=== PATIENT | female | born 1995 | race Caucasian/White ===

== ENCOUNTER → 2017-11-08 15:32 | Outpatient (CLI) | payer MEDICAID, SELFPAY ==
--- NOTE | 2017-11-08 15:56 | XR_ITS ---
XR KUB Ordering Physician: Era Arenas Patient Age: 22 years: Female HISTORY: ITS.REASON: ABD PAIN,NAUSEA . Moderate stool and gas throughout the right and transverse colon. Minimal stool and gas at the left colon and rectosigmoid. Minimal small bowel gas. No bowel dilatation or obstruction. TECHNIQUE: AP supine upright abdomen. COMPARISON : None relevant FINDINGS Nonspecific bowel gas pattern. Mild no bowel dilatation or obstruction. No organomegaly. No significant calcifications. IMPRESSION: No acute findings A unremarkable bowel gas pattern. Right and transverse colon with moderate stool and gas throughout. Normal pattern
[2017-11-08 16:01] LABS: Basophils % 0.4 % (0.1-2.0); Eosinophils # 0.2 K/mm3 (0.0-0.4); Eosinophils % 2.4 % (0.1-12.0); Hematocrit 40.4 % (37.0-47.0); Hemoglobin 13.3 g/dL (12.2-16.2); Lymphocytes # 1.7 K/mm3 (0.7-4.5); Lymphocytes % 19.2 K/mm3 (10-50); Mean Corpuscular HGB Conc 33.1 g/dL (31.8-35.4); Mean Corpuscular Hemoglobin 28.9 pg (27.0-31.2); Mean Corpuscular Volume 87.3 fl (81-99); Mean Platelet Volume 8.4 fl (7.4-10.4); Monocytes # 0.3 K/mm3 (0.1-1.0); Monocytes % 3.2 % (1.7-9.3); Neutrophils # 6.6 K/mm3 (1.8-7.8); Neutrophils % 74.9 % (37.0-80.0); Platelet Count 182 K/mm3 (142-424); Red Blood Count 4.62 M/mm3 (4.20-5.40); Red Cell Distribution Width 12.3 % (11.5-17.5); White Blood Count 8.8 K/mm3 (4.8-10.8)
[2017-11-08 16:49] LABS: Alanine Aminotransferase 16 U/L (12-78); Albumin Level 3.6 gm/dL (3.4-5.0); Albumin/Globulin Ratio 1.2 (1.1-1.8); Alkaline Phosphatase 104 U/L (46-116); Amylase 32 U/L (25-125); Anion Gap 12.5 mEq/L (5-15); Aspartate Amino Transferase 8 U/L (15-37); Bilirubin,Total 0.1 mg/dL (0.2-1.0); Blood Urea Nitrogen 7 mg/dL (7-18); Calcium 8.4 mg/dL (8.5-10.1); Carbon Dioxide 26 mmol/L (21.0-32.0); Chloride 109 mmol/L (98-107); Creatinine,Serum 0.69 mg/dL (0.55-1.02); Estimated Glomerular Filt Rate 106 ml/min (>60); GFR (African American) 129 ML/MIN (>60); Globulin 2.9 gm/dl (1.3-3.2); Glucose 93 mg/dL (74-106); Lipase 67 u/L (73-393); Potassium 3.5 mmoL/L (3.5-5.1); Sodium 144 mmol/L (136-145); Total Protein,Serum 6.5 gm/dL (6.4-8.2)
[2017-11-10 08:25] LABS: Hep A Ab, IgM Negative (Negative); Hepatitis B Core Antibody IgM Negative (Negative); Hepatitis B Surface Antigen Negative (Negative)
[2017-11-10 14:53] LABS: Hepatitis C Antibody 0.1 s/co ratio (0.0-0.9)
== END ==
PROVIDERS: Visit Provider Nurse Practitioner Family
DX: R10.9 Unspecified abdominal pain (principal); R11.0 Nausea
CPT/HCPCS: 36415; 74018; 80053; 80074; 82150; 83690; 85025; 86677

== ENCOUNTER → 2018-03-20 11:22 | Outpatient (CLI) | payer MEDICAID, SELFPAY ==
[2018-03-20 11:51] LABS: Basophils % 0.3 % (0.1-2.0); Eosinophils # 0.1 K/mm3 (0.0-0.4); Eosinophils % 0.7 % (0.1-12.0); Hematocrit 39.6 % (37.0-47.0); Hemoglobin 13.3 g/dL (12.2-16.2); Lymphocytes # 1.4 K/mm3 (0.7-4.5); Mean Corpuscular HGB Conc 33.6 g/dL (31.8-35.4); Mean Corpuscular Hemoglobin 29.1 pg (27.0-31.2); Mean Corpuscular Volume 86.8 fl (81-99); Mean Platelet Volume 7.8 fl (7.4-10.4); Monocytes # 0.5 K/mm3 (0.1-1.0); Neutrophils # 6.2 K/mm3 (1.8-7.8); Platelet Count 223 K/mm3 (142-424); Red Blood Count 4.56 M/mm3 (4.20-5.40); Red Cell Distribution Width 12.9 % (11.5-17.5); White Blood Count 8.2 K/mm3 (4.8-10.8)
[2018-03-20 13:19] LABS: Free Thyroxine Index 3.7 ug/dL (5.93-13.13); T4 (Thyroxine) 11.6 ug/dl (4.7-13.3); Thyroid Stimulating Hormone 0.43 uIU/ml (0.358-3.740); Triiodothryronine (T3) Uptake 32 % (31-39)
[2018-03-21 09:21] LABS: HIV Screen 4th Generation wRfx Non Reactive (Non Reactive)
[2018-03-21 14:21] LABS: Hepatitis B Surface Antigen Negative (Negative); Hepatitis C Antibody <0.1 s/co ratio (0.0-0.9); Rapid Plasma Reagin Ab Titer Non Reactive (NonRea<1:1); Rubella Antibodies, IgG <0.90 index (Immune >0.99)
== END ==
PROVIDERS: Visit Provider Nurse Practitioner Obstetrics & Gynecology
DX: Z34.90 Encounter for supervision of normal pregnancy, unspecified, unspecified trimester (principal)
CPT/HCPCS: 36415; 84436; 84443; 84479; 85025; 86592; 86703; 86762; 86850; 87340; 87380; G0432

== ENCOUNTER → 2018-03-29 08:52 | Outpatient (CLI) | payer MEDICAID, SELFPAY ==
--- NOTE | 2018-03-29 08:54 | US_ITS ---
US OB transvaginal HISTORY: ITS.REASON: US OB Dates ORDERING PHYSICIAN: Celso Sanchez MD PATIENT AGE: 22 years COMPARISON: None FINDINGS: An intrauterine gestational sac is present with a pole with a crown-rump length of 3.62cm correlating to gestational age of 10w4d. heart tones are present with an FHR of 170 bpm's. Yolk sac is noted. . Adnexa: Unremarkable. IMPRESSION: Live intrauterine gestation at 10 weeks 4 days as described above. Estimated due date by Ultrasound is 10/21/2018
== END ==
PROVIDERS: PCP Physician Assistant; Visit Provider Nurse Practitioner Obstetrics & Gynecology
DX: O26.841 Uterine size-date discrepancy, first trimester (principal)
CPT/HCPCS: 76817

== ENCOUNTER → 2018-05-22 12:30 | Outpatient (CLI) | payer MEDICAID, SELFPAY ==
[2018-05-24 06:14] LABS: Buprenorphine, Urine Negative ng/mL (Cutoff=10)
== END ==
PROVIDERS: Visit Provider Nurse Practitioner Obstetrics & Gynecology
DX: Z34.90 Encounter for supervision of normal pregnancy, unspecified, unspecified trimester (principal)
CPT/HCPCS: 80307

== ENCOUNTER → 2018-06-05 12:36 | Outpatient (CLI) | payer MEDICAID, SELFPAY ==
--- NOTE | 2018-06-05 13:00 | US_ITS ---
US OB /maternal detail: INDICATION: anatomy exam ITS.REASON: US OB Complete ORDERING PHYSICIAN: Celso Sanchez MD PATIENT AGE: 22 years TECHNIQUE: ultrasound transabdominal scanning. COMPARISON: No previous relevant studies. FINDINGS: Single viable intrauterine gestation. Cephalic position. Placenta: Posterior placenta grade 1. There is average amount fluid. The cervix appears satisfactory. Closed and measuring 3 cm in length. Complete survey performed and was unremarkable on the submitted images as in PACS. No discrete anomalies identified on survey imaging by technologist. Active fetus. Three-vessel cord with satisfactory umbilical cord insertion. 4- chamber heart noted. Survey of brain & ventricles unremarkable. Face and neck survey unremarkable. Diaphragm and chest views unremarkable. Abdomen: Both kidneys noted and unremarkable. Stomach noted and satisfactory. Spine: Survey of the spine satisfactory with no anomalies identified nor imaged. Both arms and legs noted. Amniotic Fluid: Adequate. Maternal adnexa: No significant findings. Measurements: Average ultrasound age 20w2d. Gestational Age 20w2d. Estimated due date by ultrasound age 0710/21/2018. Estimated weight 344 grams. BPD = 20w2d OFD = 21w2d HC = 20w0d AC = 20w2d FL = 20w4d Growth Percentile= 45% Heart Rate = 146 Cerebellum = 19w3d Humerus = 20w2d HC/AC is 1.17 (1.09-1.26). CI is 74% (70-86%). FL/BPD is 71%. FL/AC is 22%. IMPRESSION: There is a single live intrauterine gestation which is in cephalic presentation. Average ultrasound age is 20 weeks and 2 days. No obvious anomalies. Please see above for details
== END ==
PROVIDERS: PCP Physician Assistant; Visit Provider Nurse Practitioner Obstetrics & Gynecology
DX: Z36.0 Encounter for antenatal screening for chromosomal anomalies (principal)
CPT/HCPCS: 76811

== ENCOUNTER → 2019-12-06 11:10 | Outpatient (CLI) | payer MEDICAID, SELFPAY ==
[2019-12-06 12:57] LABS: Coronavirus 19 IgG Antibody Negative (Negative); Coronavirus 19 IgM Antibody Negative (Negative)
[2019-12-07 15:53] LABS: Covid-19 Nasal PCR Sendout Lex Not Detected
== END ==
PROVIDERS: Visit Provider Family Medicine
DX: Z03.818 Encounter for observation for suspected exposure to other biological agents ruled out (principal); R05 Cough; R06.02 Shortness of breath
CPT/HCPCS: 36415; 86328; U0004

== ENCOUNTER → 2021-11-15 18:18 | Outpatient (CLI) | payer MEDICAID, SELFPAY | LOC: LAB 18:19 → LAB.DROPOF 11-16 10:43 | PROVIDERS: PCP Family Medicine; Visit Provider Family Medicine | DX: Z20.822 Contact with and (suspected) exposure to COVID-19 (principal); J02.9 Acute pharyngitis, unspecified | CPT/HCPCS: 87070; C9803; U0003; U0005 ==

== ENCOUNTER 2023-05-16 09:04 | Emergency (ER) | payer MEDICAID, SELFPAY ==
[2023-05-16] VITALS (8 sets, daily range): BP systolic 129–150; BP diastolic 77–101; PULSE 57–89; RESP 18; TEMP 36.7; O2SAT 98–100; BMI 27.4
--- NOTE | 2023-05-16 09:11 | HMH.EDGENADL ---
Discharge Plan Disposition Patient Disposition: Home, Self-Care Condition: Good Prescriptions Prescriptions: No Action amoxicillin 500 mg capsule 500 mg PO TID Qty: 30 0RF Referrals Follow up/Referrals: Robel Vila MD [Primary Care Provider] - See instructions Clinical Impressions Clinical Impression: Hyperemesis gravidarum Instructions Patient Instructions: DI for Hyperemesis Gravidarum Discharge ED Provider: Makayla Sky General Adult HPI General Chief complaint: Nausea/Vomiting/Diarrhea Stated complaint: vomiting Time Seen by Provider: 05/16/23 09:06 History of Present Illness HPI narrative: Patient has a PMHx significant for gastritis who presents to the ED with complaints of intractable nausea vomiting. Patient notes that for the past 8 days, she has been having constant nausea vomiting, triggered by a history of p.o. intake including water. Patient notes that she is having multiple episodes of emesis daily. Patient notes that over the past 3 to 4 days, she has started noticing blood-tinged emesis. Patient denies any abdominal pain or diarrhea. Patient went to an outside hospital approximately 1 week ago and found out that she is . Patient denies any fevers or chills. Patient came into the ED due to ongoing symptoms. Related Data Previous Rx's Medication Instructions Recorded amoxicillin 500 mg capsule 500 mg PO TID #30 caps 11/15/21 Allergies Allergy/AdvReac Type Severity Reaction Status Date / Time No Known Allergies Allergy Verified 11/15/21 14:06 [facility] Disclaimer: The information contained in this section may have been updated after the patient was seen, as this information can be updated by other users. Social History Smoking Status: Former smoker alcohol intake: never substance use type: marijuana (stoppe 09/2021) current occupational status: employed ([employer]) Travel in the last 8 weeks: None household members: children housing: apartment ROS Obtained: Yes All systems reviewed & no additional complaints except as documented Physical Exam General General appearance: alert and in no apparent distress Head Head exam: atraumatic, normocephalic and normal inspection Eye Eye exam: Present normal appearance, PERRL and EOMI; Absent scleral icterus or nystagmus ENT ENT exam: Present normal exam, mucous membranes moist and normal external ear exam Neck Neck exam: Present normal inspection, full ROM and trachea midline Chest Chest inspection: Present normal inspection and symmetric chest wall rise; Absent tenderness Respiratory Respiratory exam: Present normal lung sounds bilaterally; Absent respiratory distress, wheezes or accessory muscle use Cardiovascular Cardiovascular exam: Present regular rate, normal rhythm and normal heart sounds Abdominal Exam Abdominal exam: Present soft; Absent distention, tenderness, guarding, rebound, rigidity, trauma, ascites or pulsatile mass Extremities Exam Extremities exam: Present normal inspection and full ROM; Absent tenderness Back Exam Back exam: Present normal inspection and full ROM; Absent tenderness Neurological Exam Neurological exam: Present alert, oriented X3 and normal gait; Absent motor sensory deficit Psychiatric Psychiatric exam: Present normal affect and normal mood Skin Skin exam: Present warm, dry and pallor Medical Decision Making Medical Records Medical records reviewed: Yes I reviewed the patient's medical records. Kar Inquiry Pt receiving controlled substance: No Vital Signs: 05/16/23 09:05 05/16/23 09:08 05/16/23 10:02 Temperature 98.1 F Temperature Source Oral Pulse Rate 72 57 L Pulse Rate [Left Radial] 73 Respiratory Rate 18 Blood Pressure 131/86 138/82 Blood Pressure [Right Arm] 131/86 Blood Pressure Mean [Right Arm] 101 Blood Pressure Source [Right Arm] Automatic Cuff Blood Pressure Position [Right Arm] Sitting 02 Sat by Pulse Oximetry 100 100 98 Oxygen Delivery Method Room Air Room Air Room Air 05/16/23 10:30 05/16/23 11:00 Temperature Temperature Source Pulse Rate 61 60 Pulse Rate [Left Radial] Respiratory Rate Blood Pressure 129/77 131/77 Blood Pressure [Right Arm] Blood Pressure Mean [Right Arm] Blood Pressure Source [Right Arm] Blood Pressure Position [Right Arm] 02 Sat by Pulse Oximetry 100 100 Oxygen Delivery Method Room Air Room Air Lab Data Lab results reviewed: Yes I reviewed the patient's lab results. Lab Results 05/16/23 09:16: WBC 14.5 H, RBC 4.95, Hgb 15.8, Hct 41.6, MCV 84.0, MCH 31.8 H, MCHC 37.9 H, RDW 12.9, Plt Count 215, MPV 9.0, Neut % (Auto) 83.5 H, Lymph % (Auto) 10.2, [place] % (Auto) 4.6, Eos % (Auto) 1.5, Baso % (Auto) 0.3, Neut # (Auto) 12.1 H, Lymph # (Auto) 1.5, [place] # (Auto) 0.7, Eos # (Auto) 0.2, Baso # (Auto) 0.0, Sodium 134 L, Potassium 3.3 L, Chloride 99, Carbon Dioxide 20 L, Anion Gap 18.3 H, BUN 9, Creatinine 0.50 L, Estimated Creat Clear 206, Estimated GFR 148, Est GFR ( Amer) 179, Glucose 96, Calcium 9.4, Total Bilirubin 1.1, AST 29, ALT 30, Alkaline Phosphatase 113, Total Protein 8.1, Albumin 4.7, Globulin 3.4 H, Albumin/Globulin Ratio 1.4, Lipase 30, HCG, Quant 90034 H 05/16/23 10:02: Urine Color Dark yellow, Urine Appearance Sl cloudy, Urine pH 6.0, Ur Specific [place] >= 1.030, Urine Protein 1+, Urine Glucose (UA) Negative, Urine Ketones 3+, Urine Blood Negative, Urine Nitrate Negative, Urine Bilirubin Negative, Urine Urobilinogen 1.0, Ur Leukocyte Esterase Negative, Urine RBC Occasional, Urine WBC Occasional, Ur Squamous Epith Cells 10-20, Urine Bacteria Trace, Urine Mucus 2+ 05/16/23 11:22: Lactate 1.1 05/16/23 09:16 05/16/23 09:16 Orders (Tests/Meds): ED MEDICATIONS Discontinued Medications Generic Name Dose Route Start Last Admin Trade Name Christina PRN Reason Stop Dose Admin Acetaminophen 1,000 mg 05/16/23 09:10 05/16/23 09:26 Acetaminophen 500mg Tab PO 05/16/23 09:11 1,000 mg ONCE ONE Administration Belladonna Alkaloids 60 ml 05/16/23 09:10 05/16/23 09:26 Belladonna Alkaloids 60 Ml Ml PO 05/16/23 09:11 60 ml ONCE ONE Administration Diphenhydramine HCl 25 mg 05/16/23 09:42 05/16/23 09:52 Diphenhydramine 50mg/Ml Vial IV 05/16/23 09:43 25 mg ONCE ONE Administration Droperidol 2.5 mg 05/16/23 09:42 05/16/23 09:52 Droperidol 5mg/2ml Vial IV 05/16/23 09:43 2.5 mg ONCE ONE Administration Lactated Ringer's 1,000 mls @ 999 mls/hr 05/16/23 09:10 05/16/23 09:25 Lactated Ringer's 1000 Ml Bag IV 05/16/23 10:10 999 mls/hr .Q1H1M ONE Administration Ondansetron HCl 4 mg 05/16/23 09:10 05/16/23 09:26 Ondansetron 4mg/2ml Vial IV 05/16/23 09:11 4 mg ONCE ONE Administration ORDERS Category Date Time Status Beta HCG, Quant [HCG,Quantitative] Stat Lab 05/16/23 09:16 Completed CBC w/Auto Diff [Complete Blood Count Auto Diff] Stat Lab 05/16/23 09:16 Completed CMP [Comprehensive Metabolic Panel] Stat Lab 05/16/23 09:16 Completed Lactic Acid Stat Lab 05/16/23 11:22 Completed Lipase Stat Lab 05/16/23 09:16 Completed Urinalysis and Microscopic Stat Lab 05/16/23 10:02 Completed Urine Culture Stat Micro 05/16/23 10:02 Received Medical Decision Narrative: In summary, Patient has a PMHx significant for gastritis who presents to the ED with complaints of intractable nausea vomiting. Patient notes that for the past 8 days, she has been having constant nausea vomiting, triggered by a history of p.o. intake including water. Patient notes that she is having multiple episodes of emesis daily. Patient notes that over the past 3 to 4 days, she has started noticing blood-tinged emesis. Patient denies any abdominal pain or diarrhea. Patient went to an outside hospital approximately 1 week ago and found out that she is . Patient denies any fevers or chills. Patient came into the ED due to ongoing symptoms. Patient was afebrile, hemodynamically stable, in no respiratory distress, and nontoxic in appearance upon arrival and throughout the entire stay in the ED. Physical examination was unremarkable aside from signs of dehydration including mucosal pallor and delayed cap refill, including lungs CTAB, normal cardiac auscultation, benign abdominal exam with no focal TTP, and no acute neurological deficit. The DDx includes, but is not limited to, dehydration secondary to acute viral gastroenteritis, bacterial gastroenteritis, hyperemesis gravidarum c/b acute metabolic or hematological derangement, gastritis. All of these have been considered, however ruling out the most morbid conditions drove my clinical assessment and thus the following laboratory and/or radiographic evaluation was conducted to the appropriate extent based on history and physical examination. All ordered laboratory studies independently reviewed and interpreted by myself and pertinent for: - CBC was unremarkable for any actionable leukocytosis, anemia, or thrombocytopenia. Mild WBC of 14.5 - CMP was unremarkable for any actionable electrolyte derangement, elevated creatinine, or transaminitis. - Lipase WNL - U/A was unremarkable for any signs consistent with an urinary tract infection or noteworthy hematuria, ketonuria, or glucosuria. - Lactate WNL - HCG [id number] Interventions/Medications Received in the ED: -1L LR, 4mg IV zofran, 1000mg APAP, GI cocktail, 2.5mg droperidol, 25mg benadryl Reassessment: On re-evaluation of patient, patient endorsed significant improvement of symptoms. patient able to tolerate Po intake At this time, given unremarkable workup and/or symptomatic relief, as well as the fact that patient continued to remain well-appearing, it was felt that the patient was safe to be discharged home. I considered (and discussed through shared decision making) the utility of treatment with a prescription for antibiotics, however the patient already had prescription for Zofran at home. The patient/parents were comfortable and in agreement with this plan. Patient instructed to follow up with [employer]/PCP. The patient/parents were given strict return precautions prior to being discharged from the emergency department. All questions were answered. Makayla Sky MD Emergency Medicine Critical Care Critical Care Time Critical Care Time: No
[2023-05-16 09:24] LABS: Basophils % 0.3 % (0.1-2.0); Eosinophils # 0.2 K/mm3 (0.0-0.4); Eosinophils % 1.5 % (0.1-12.0); Hematocrit 41.6 % (37.0-47.0); Hemoglobin 15.8 g/dL (12.2-16.2); Lymphocytes # 1.5 K/mm3 (0.7-4.5); Lymphocytes % 10.2 % (10-50); Mean Corpuscular HGB Conc 37.9 g/dL (31.8-35.4); Mean Corpuscular Hemoglobin 31.8 pg (27.0-31.2); Monocytes # 0.7 K/mm3 (0.1-1.0); Monocytes % 4.6 % (1.7-9.3); Neutrophils # 12.1 K/mm3 (1.8-7.8); Neutrophils % 83.5 % (37.0-80.0); Platelet Count 215 K/mm3 (142-424); Red Blood Count 4.95 M/mm3 (4.20-5.40); Red Cell Distribution Width 12.9 % (11.5-17.5); White Blood Count 14.5 K/mm3 (4.8-10.8)
[2023-05-16] MEDS: LACTATED RINGERS 1000ML 1,000 ML 999 ML IV (09:25)
[2023-05-16] MEDS: ONDANSETRON 4MG/2ML VIAL 4 MG IV (09:26)
[2023-05-16] MEDS: BELLADONNA ALKALOIDS 60 ML ML PO (09:26)
[2023-05-16] MEDS: ACETAMINOPHEN 500MG TAB 1000 MG PO (09:26)
[2023-05-16 09:38] LABS: Chloride 99 mmol/L (98-107); Potassium 3.3 mmoL/L (3.5-5.1); Sodium 134 mmol/L (136-145)
[2023-05-16 09:41] LABS: Alanine Aminotransferase 30 U/L (12-78); Albumin Level 4.7 g/dl (3.5-5.0); Albumin/Globulin Ratio 1.4 (1.1-1.8); Alkaline Phosphatase 113 U/L (38-126); Anion Gap 18.3 mEq/L (5-15); Aspartate Amino Transferase 29 U/L (14-36); Bilirubin,Total 1.1 mg/dl (0.2-1.3); Blood Urea Nitrogen 9 mg/dl (7-17); Calcium 9.4 mg/dl (8.4-10.2); Carbon Dioxide 20 mmol/L (22.0-30.0); Creatinine Clearance Estimated 206 mL/min (50-200); Estimated Glomerular Filt Rate 148 ml/min (>60); GFR (African American) 179 ML/MIN (>60); Globulin 3.4 g/dL (1.3-3.2); Glucose 96 mg/dl (74-100); Lipase 30 U/L (23-300); Total Protein,Serum 8.1 g/dl (6.3-8.2)
[2023-05-16] MEDS: diphenhydrAMINE 50MG/ML VIAL 25 MG IV (09:52)
[2023-05-16] MEDS: droPERidol 5MG/2ML VIAL 2.5 MG IV (09:52)
[2023-05-16 10:05] LABS: Microscopic, Urine URINE MICROSCOPIC (MICROSCOPIC)
[2023-05-16 10:08] LABS: Appearance,Urine SL CLOUDY (Clear); Blood, Urine Negative (Negative); Color,Urine DARK YELLOW (Yellow); Glucose,Urine (UA) Negative (Negative); Ketones,Urine 3+ (Negative); Leukocyte Esterase,Urine Negative (Negative); Nitrate,Urine Negative (Negative); Protein,Urine 1+ (Negative); Specific Gravity, Urine >= 1.030 (1.005-1.030)
[2023-05-16 10:16] LABS: Bilirubin,Urine Negative (Negative)
[2023-05-16 10:24] LABS: Bacteria,Urine Trace /lpf; Mucus,Urine 2+ /lpf; RBC,Urine Occasional #/hpf (0-3); WBC,Urine Occasional #/hpf (0-3)
[2023-05-16 11:13] LABS: HCG,Quantitative 53647 mIU/ml (0-5.42)
[2023-05-16 11:54] LABS: Lactic Acid 1.1 mmol/L (0.7-2.1)
--- NOTE | 2023-06-10 21:49 | PC.NURSE ---
no growth on final urine
== END 2023-05-16 12:08 | disposition home or self-care (01) ==
PROVIDERS: Emergency Provider Emergency Medicine; PCP Internal Medicine Adolescent Medicine
DX: O21.0 Mild hyperemesis gravidarum (principal); Z3A.00 Weeks of gestation of pregnancy not specified
CPT/HCPCS: 80053; 81001; 83605; 83690; 84702; 85025; 87086; 96361; 96374; 96375; 99285; J1790; J2405

== ENCOUNTER 2024-02-22 11:10 | Outpatient (CLI) | payer MEDICAID, SELFPAY ==
--- NOTE | 2024-02-22 | CA_ITS ---
APPROVED REPORT EXAM: Comprehensive 2D, Doppler, and color-flow Echocardiogram Package Line Relief Operator: Katharine Noguera RT(R) Ht: 5 ft 6 in Wt: 170lbs BSA: 1.87 BP: 112/78 mmHg Indications: murmur, smoker 2D Dimensions Left Atrium 3.20 cm F: 2.7 - 3.8 LVEF (Hodge's) 59.60 % F: 54 - 74 LVOT 1.94 cm (M/F) 1.5-2.5 LV Volume 83.70 mL F: 46 - 106 LV Volume Index 44.8 mL/m2 F: 29 - 61 LA Volume 22.30 mL LA Volume Index 11.93 mL/m2 (M/F) 16-34 EF AP4 60.90 % EF AP2 56.7 % EF BP 59.6 % GL Strain -20.3 % M-Mode Dimensions RVDd 2.62 cm (0.9-2.6) LVDd 4.49 cm (3.5-5.7) Ao Diam 2.76 cm (2.0-3.7) LVDs 3.29 cm (3.5-5.7) IVSd 0.64 cm (0.6-1.1) PWd 0.80 cm (0.6-1.1) EF (Teich) 52.40% FS 26.70% EDV (Teich) 92.00 mL ESV (Teich) 43.80 mL LV Diastology E Decel Time 186 (160-240 msec) E/A Ratio 1.8 MED E' 11.2 (>= 7 cm/sec) E'/MED E' Ratio 7.59 (<= 14) LAT E' 16.1 (>= 10 cm/sec) E/LAT E' Ratio 5.28 (<= 14) Mitral Valve MV E Max Jaylen. 85.0 (40-130 cm/s) MV A Velocity 46.0 (40-130 cm/s) E/A Ratio 1.86 MV Decel. Time 186 (160-240 ms) Left Ventricle The left ventricle is normal size. The left ventricular systolic function is normal. The left ventricular ejection fraction is within the normal range. There is normal left ventricular wall thickness. There is normal LV segmental wall motion. The left ventricular diastolic function is normal. LVEF is 55%. Right Ventricle The right ventricle is normal size. The right ventricular systolic function is normal. Atria The left atrium size is normal. The right atrium size is normal. There is no Doppler evidence of interatrial shunt. Aortic Valve The aortic valve opens well. There is no aortic valvular stenosis. No aortic regurgitation is present. Mitral Valve The mitral valve is normal in structure. No evidence of mitral valve stenosis. No mitral regurgitation. Tricuspid Valve The tricuspid valve leaflets are thin and pliable. Trace tricuspid regurgitation. There is insufficient TR jet to estimate RVSP. Pulmonic Valve The pulmonary valve is normal in structure. Trace pulmonic regurgitation. Great Vessels The aortic root is normal in size. The ascending aorta is normal in size. IVC is normal in size and collapses >50% with inspiration. Pericardium There is no pericardial effusion. Other Information Study Quality: Adequate Conclusion Normal biventricular systolic function. No significant valvular stenosis or regurgitation. Electronically signed by : Jessie Brenner MD 02/26/2024 00:43:42
== END 2024-02-22 23:59 | disposition home or self-care (01) ==
LOC: RT 11:10
PROVIDERS: PCP Nurse Practitioner Family; Visit Provider Physician Assistant
DX: R01.1 Cardiac murmur, unspecified (principal)
CPT/HCPCS: 93306

== ENCOUNTER → 2024-05-16 08:59 | Day surgery (SDC) | payer MEDICAID, SELFPAY ==
[2024-05-16 09:36] VITALS: BMI 33.9
[2024-05-16 09:38] VITALS: BP 114/71; PULSE 77; RESP 18; TEMP 36.4; O2SAT 96
--- NOTE | 2024-05-16 09:46 | SUR.PREOP ---
procedure cancelled d/t MD Magana deeming it no longer medically necessary
[2024-05-16 09:48] LABS: POC Glucose,Bedside 93 (70-110)
== END ==
LOC: OUTP 09:00
PROVIDERS: PCP Physician Assistant; Visit Provider Surgery
DX: Z53.8 Procedure and treatment not carried out for other reasons (principal)
CPT/HCPCS: 82962

== ENCOUNTER 2024-11-20 12:01 | Emergency (ER) | payer MEDICAID, SELFPAY ==
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
[2024-11-20 13:09] VITALS: BP 121/85; PULSE 71; RESP 16; TEMP 36.8; O2SAT 100; BMI 31.4
[2024-11-20 13:17] VITALS: BP 117/89; PULSE 62; RESP 18; TEMP 36.6; O2SAT 99
== END 2024-11-20 13:18 | disposition home or self-care (01) ==
PROVIDERS: Emergency Provider Student in an Organized Health Care Education/Training Program; PCP Physician Assistant
DX: S00.33XA Contusion of nose, initial encounter (principal); W50.0XXA Accidental hit or strike by another person, initial encounter
CPT/HCPCS: 99283